=== PATIENT | male | born 1960 | race Two or more races ===

== ENCOUNTER 2022-02-19 16:24 | Emergency (ER) | payer SELFPAY ==
[~2022-02-19] VITALS: Ht 165.1 cm; Wt 61.2 kg
[~2022-02-19 16:24] MED LIST: ATEN-60 PO; EFAVTAB5 PO; FLUO20TA34 PO; MULTCAP45 PO; RISP1TAB63 PO; TRAZ50T PO
[2022-02-19 16:25] VITALS: BP 118/87
== END 2022-02-19 17:36 | disposition left against medical advice (07) ==
LOC: ER 16:24
DX: M25.512 Pain in left shoulder (principal); Z53.21 Procedure and treatment not carried out due to patient leaving prior to being seen by health care provider; W01.0XXA Fall on same level from slipping, tripping and stumbling without subsequent striking against object, initial encounter; Y93.89 Activity, other specified; Y92.89 Other specified places as the place of occurrence of the external cause; Y99.8 Other external cause status

== ENCOUNTER 2022-02-24 11:46 | Emergency (ER) | payer MEDICAID, OTHER ==
[~2022-02-24] VITALS: Ht 165.1 cm; Wt 61.2 kg
[2022-02-24 12:58] VITALS: BP 125/86
[2022-02-24] MEDS ORDERED: KETOROLAC TROMETH 60MG/2ML VIAL IM ONE (13:15)
== END 2022-02-24 17:01 | disposition home or self-care (01) ==
LOC: ER 11:46
DX: S42.202A Unspecified fracture of upper end of left humerus, initial encounter for closed fracture (principal); Z53.29 Procedure and treatment not carried out because of patient's decision for other reasons; F17.210 Nicotine dependence, cigarettes, uncomplicated; I10 Essential (primary) hypertension; W01.0XXA Fall on same level from slipping, tripping and stumbling without subsequent striking against object, initial encounter; Y93.89 Activity, other specified; Y92.89 Other specified places as the place of occurrence of the external cause; Y99.8 Other external cause status
CPT/HCPCS: 73030; 96372; 99283; J1885

== ENCOUNTER 2022-02-26 06:45 | Emergency (ER) | payer SELFPAY ==
[~2022-02-26] VITALS: Ht 165.1 cm; Wt 59.0 kg
[2022-02-26 06:46] VITALS: BP 172/93
[2022-02-26] MEDS ORDERED: ACETAMINOPHEN 500 MG TAB PO ONE (07:45)
[2022-02-26] MEDS ORDERED: IBUP800T27 PO (07:47)
== END 2022-02-26 08:02 | disposition home or self-care (01) ==
LOC: ER 06:45
DX: S42.255A Nondisplaced fracture of greater tuberosity of left humerus, initial encounter for closed fracture (principal); F17.210 Nicotine dependence, cigarettes, uncomplicated; I10 Essential (primary) hypertension; W01.0XXA Fall on same level from slipping, tripping and stumbling without subsequent striking against object, initial encounter; Y93.89 Activity, other specified; Y92.89 Other specified places as the place of occurrence of the external cause; Y99.8 Other external cause status

== ENCOUNTER 2022-07-08 07:29 | Emergency (ER) | payer SELFPAY ==
[~2022-07-08] VITALS: Ht 165.1 cm; Wt 130.0 kg
[~2022-07-08 07:29] MED LIST changes: +IBUP800T27 PO
[2022-07-08 08:23] VITALS: BP 169/95
== END 2022-07-08 08:58 | disposition home or self-care (01) ==
LOC: ER 07:29
DX: H90.42 Sensorineural hearing loss, unilateral, left ear, with unrestricted hearing on the contralateral side (principal); F17.210 Nicotine dependence, cigarettes, uncomplicated; I10 Essential (primary) hypertension